=== PATIENT | male | born 1960 | race Caucasian/White ===

== ENCOUNTER 2019-01-22 06:43 | Day surgery (SDC) | payer OTHER ==
[~2019-01-22] VITALS: Ht 185.4 cm; Wt 132.0 kg
[2019-01-22 07:36] VITALS: Ht 185.4 cm; Wt 132.0 kg
[2019-01-22] MEDS ORDERED: METFORMIN (07:42)
[2019-01-22] MEDS ORDERED: LISINOPRIL (07:42)
[2019-01-22] MEDS ORDERED: METOPROLOL (07:42)
[2019-01-22 08:01] VITALS: BP 165/92; PULSE 70; RESP 18
--- NOTE | 2019-01-22 08:10 | PREAC ---
Date/Time of Note Date/Time of Note DATE: 01/22/19 TIME: 08:07 Anesthesia Eval and Record Evaluation Time Pre-Procedure Interview DATE: 01/22/19 TIME: 08:07 Age 58 Sex male NPO: 8 hrs Preoperative diagnosis screening Planned procedure colonoscopy Past Medical History Past Medical History: Includes Cardio: HTN Endo: Diabetes GI: Obesity Surgery & Anesthesia Issues No known issue Meds Anticoagulation: No Beta Jl within 24 hr: Yes Reason Beta Jl not given: Bradycarida, Hypotension Reported Medications [Metformin] No Conflict Check 01/22/19 [Lisinopril] No Conflict Check 01/22/19 [Metoprolol] No Conflict Check 01/22/19 Meds reviewed: Yes Allergies Coded Allergies: No Known Allergy (Unverified , 01/22/19) Allergies Reviewed: Yes Labs/Studies Labs Reviewed: Reviewed by anesthesiologist test: N/A Pre-procedure Exam Last vitals Vital Signs Date Temp Pulse Resp B/P (MAP) Pulse Ox O2 O2 Flow FiO2 Time Delivery Rate 01/22/19 98.0 70 18 165/92 96 Room Air 08:01 (116) Airway: Adequate mouth opening, Adequate thyromental dist Mallampati: Mallampati II Teeth: Normal Lung: Normal Heart: Normal ASA Physical Status ASA physical status: 2 Emergency: None Planned Anesthetic General/MAC: Mask Planned Pain Management Parenteral pain med Pre-operative Attestations Prior to commencing anesthesia and surgery, the patient was re-evaluated, there was verification of: *The patient's identity *The results of appropriate recent lab work and preoperative vital signs *The above evaluation not changing prior to induction *Anesthetic plan, risk benefits, alternative and complications discussed with patient/family; questions answered; patient/family understands, accepts and wishes to proceed. CHLOE LOCKETT MD Jan 22, 2019 08:10
[2019-01-22] MEDS ORDERED: PROPOFOL 40 ML ONE (08:31)
[2019-01-22] MEDS ORDERED: LIDOCAINE 2% (SDV) 5 ML INJ ONE (08:31)
--- NOTE | 2019-01-22 09:25 | PAC ---
Date/Time of Note Date/Time of Note DATE: 01/22/19 TIME: 09:24 Post-Anesthesia Notes Post-Anesthesia Note Last documented vital signs Vital Signs Date Temp Pulse Resp B/P (MAP) Pulse Ox O2 O2 Flow FiO2 Time Delivery Rate 01/22/19 98.0 70 18 165/92 96 Room Air 08:01 (116) Activity: WNL Respiratory function: WNL Cardiovascular function: WNL Mental status: Baseline Pain reasonably controlled: Yes Hydration appropriate: Yes Nausea/Vomiting absent: Yes Comments BP: 115/66 HR: 63 RR: 15 T: 98 SaO2: 100% CHLOE LOCKETT MD Jan 22, 2019 09:25
[2019-01-22] MEDS ORDERED: PROPOFOL 20 ML ONE ×2 (09:31)
[2019-01-22 09:44] VITALS: BP 128/69; PULSE 94; RESP 14
== END 2019-01-22 10:27 | disposition home or self-care (01) ==
LOC: GIL 06:43
PROVIDERS: ATTEND Internal Medicine Gastroenterology
DX: Z12.11 Encounter for screening for malignant neoplasm of colon (principal); K64.8 Other hemorrhoids; I10 Essential (primary) hypertension; E78.5 Hyperlipidemia, unspecified
CPT/HCPCS: 45380; 82962; 88305; Z7610